=== PATIENT | male | born 1950 | race Caucasian/White ===

== ENCOUNTER 2022-03-06 07:18 | Observation (INO) ==
[2022-03-06] MEDS: NS 0.9% 1000 ml BAG 1,000 ML IV SCH ×2 (11:00→21:10)
[2022-03-06] MEDS ORDERED: guaiFENesin 100 mg/5 ml LIQ unit dose cup PO PRN (12:47)
[2022-03-06] MEDS: Enoxaparin 40 MG/0.4 ML SYR SUBCUT SCH (13:52)
[2022-03-06] MEDS: Sucralfate 1 gm SUSP 1 GM/10 ML UDC PO SCH ×3 (13:52→19:52)
[2022-03-06] MEDS: Morphine ORAL CONCENTRATE 5 MG/0.25 ML ORAL.SYRIN PO PRN ×2 (16:02→20:23)
[2022-03-06] MEDS: Magic MouthWash1-BEN/MAAL/LIDO 180 ML BTL SWISH SWAL SCH ×2 (17:03→23:24)
[2022-03-06] MEDS: HYDROcodone/ACET. 7.5/325 LIQ 15 ML UDC PO PRN (17:54)
[2022-03-07] MEDS: HYDROcodone/ACET. 7.5/325 LIQ 15 ML UDC PO PRN ×2 (00:21→08:24)
[2022-03-07 06:23] LABS: Hematocrit 28 % (42-52); Hemoglobin 9.8 g/dL (14.0-18.0); Mean Corpuscular HGB Conc 35 g/dL (31-36); Mean Corpuscular Hemoglobin 32 pg (27-31); Mean Corpuscular Volume 94 fL (80-94); Mean Platelet Volume 7.7 fL (7.4-10.4); Platelet Count 140 10^3/uL (150-450); Red Blood Count 3.03 10^6 /uL (4.18-5.48); Red Cell Distribution Width 14 % (10-15); White Blood Count 1.5 10^3/uL (3.5-10.8)
[2022-03-07 06:38] LABS: Albumin/Globulin Ratio 1.8 (1-3); Calcium 7.3 mg/dL (8.6-10.3); Creatinine, Serum 0.62 mg/dL (0.67-1.17); Globulin 1.7 g/dL (2-4); Potassium 3.5 mmol/L (3.5-5.0); Total Bilirubin 0.5 mg/dL (0.2-1.0); Total Protein 4.7 g/dL (6.4-8.9); eGFR CKD-EPI 101.6 (>60)
[2022-03-07 07:37] VITALS: BP 101/65
[2022-03-07 07:59] LABS: ABS Lymphocytes 0.5 10^3/ul (1.0-4.8); ABS Monocytes 0.2 10^3/ul (0-0.8); ABS Neutrophils 0.9 10^3/ul (1.5-7.7); Eosinophil % 1.1 %; Lymphocyte % 30.7 %
[2022-03-07] MEDS: Sucralfate 1 gm SUSP 1 GM/10 ML UDC PO SCH (08:14)
[2022-03-07] MEDS: Magic MouthWash1-BEN/MAAL/LIDO 180 ML BTL SWISH SWAL SCH (08:15)
[2022-03-07] MEDS: Enoxaparin 40 MG/0.4 ML SYR SUBCUT SCH (11:40)
== END 2022-03-07 11:25 | disposition home or self-care (01) ==
LOC: SSU
PROVIDERS: ADMIT Internal Medicine Hematology & Oncology; ATTEND Internal Medicine Medical Oncology